=== PATIENT | female | born 1990 | race Asian ===

== ENCOUNTER 2023-02-17 11:23 | Emergency (ER) | payer OTHER ==
[~2023-02-17] VITALS: Ht 160 cm; Wt 45.0 kg
[2023-02-17 12:17] VITALS: BP 106/69; PULSE 72; RESP 16; TEMP 98.6; O2SAT 99
[2023-02-19 11:10] LABS: Hepatitis B Surface Antibody Positive (Negative)
[2023-02-19 12:16] LABS: Hepatitis B Surface Antigen Negative (Negative)
== END 2023-02-17 14:02 | disposition home or self-care (01) ==
LOC: ER 11:23
DX: Z00.00 Encounter for general adult medical examination without abnormal findings (principal); Z86.2 Personal history of diseases of the blood and blood-forming organs and certain disorders involving the immune mechanism
CPT/HCPCS: 36415; 86703; 86706; 86803; 87340